=== PATIENT | male | born 1960 | race Caucasian/White ===

== ENCOUNTER 2018-11-20 05:08 | Day surgery (SDC) | payer MEDICARE ==
[~2018-11-20] VITALS: Ht 182.9 cm; Wt 130.6 kg
[2018-11-20] VITALS (10 sets, daily range): BP systolic 129–154; BP diastolic 58–88
[~2018-11-20 05:08] MED LIST: DOXY100C42 PO; GLIP10TA13 PO; HYDR-3062 PO; KETO-22 PO; LEVEMIR; OMEP-10 PO; OXYC-12 PO
--- OUTSIDE RECORDS SUMMARY | 2018-11-20 05:14 | XMS REPORT | Continuity of Care Document ---
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 Social History History Response Recorded Date/Time Alcohol Use Denies Use 01/29/13 7:51pm Recreational Drug Use N 01/29/13 7:51pm Allergies, Adverse Reactions, Alerts Allergen Type Severity Reaction Last Updated No Known Drug Allergies 01/29/13 Medications Medication Dose Units Route Sig Qty Days Oxycodone Hcl/Acetaminophen (Percocet 5-325 Mg Tablet) 1 Each PO Q4H PRN 14 Omeprazole (Prilosec 20 Mg) 20 Mg PO DAILY Glipizide 1 Each PO DAILY Immunizations Name Given Type DTaP 01/29/13 A Response Recorded Date/Time Status not known Unknown Results No Known Relevant Diagnostic Tests, Laboratory Data and/or Discharge Summary. Procedures Procedure Code Date DIAGNOSTIC COLONOSCOPY 51633 03/20/09 UPPER GI ENDOSCOPY BIOPSY 73994 03/20/09 Encounters Encounter Location Date/Time Departed Emergency Room [facility] 01/29/13 7:42pm
--- OUTSIDE RECORDS SUMMARY | 2018-11-20 05:15 | XMS REPORT | Continuity of Care Document ---
Author Organization Unknown Address Unknown Allergies There is no data. Medications There is no data. Problems There is no data. Procedures There is no data. Results There is no data. Encounters ACCT No. Visit Date/Time Discharge Status Pt. Type Provider Facility Loc./Unit Complaint [id number] 11/20/2013 06:24:00 11/20/2013 12:50:00 DIS Outpatient [id number] 11/16/2013 08:17:00 11/16/2013 23:59:59 CLS Outpatient [id number] 10/26/2013 10:22:00 10/26/2013 23:59:59 CLS Outpatient [id number] 01/29/2013 19:42:00 01/29/2013 22:26:00 DIS Emergency
[2018-11-20] MEDS ORDERED: NS IV 1000 ML 1,000 ML IV ONE (05:31)
[2018-11-20 05:32] LABS: BILIRUBIN,URINE NEGATIVE (NEGATIVE); CLARITY,URINE CLEAR; COLOR,URINE YELLOW; GLUCOSE, URINE (UA) 4+ (NEGATIVE); KETONES,URINE 3+ (NEGATIVE); LEUKOCYTE ESTERASE ,URINE 1+ (NEGATIVE); NITRITE,URINE NEGATIVE (NEGATIVE); PH,URINE 5 (5-9); PROTEIN,URINE 2+ (NEGATIVE); UROBILINOGEN,URINE NORMAL (NORMAL)
--- NOTE | 2018-11-20 05:38 | ED Abdominal Pain ---
General Chief Complaint: Abdominal/GI Problems Stated Complaint: LOWER ABD PAIN, HORSE VOICE, WEAK Nursing Triage Note: AMBULATORY TO ED WITH C/O OF ABD PAIN THAT STARTED TUESDAY, NOW RLQ. NAUSEATED ALL DAY YESTERDAY, NONE NOW AT THIS TIME. STATES HE HASN'T ATE VERY MUCH AND IS DIABETIC, LAST BLOOD SUGAR CHECK WAS 180s ABOUT 0400. Sepsis Screen: No Definite Risk Source of Information: Patient (KAREEM GIRARD DO) History of Present Illness Date Seen by Provider: November 20, 2018 Time Seen by Provider: 05:20 Initial Comments PT ARRIVES VIA POV FROM HOME STATES HE HAD DIARRHEA X 1 ON TUESDAY NIGHT YESTERDAY MORNING/TUESDAY MORNING HE BEGAN TO HAD EPIGASTRIC/ PERIUMBILICAL PAIN PAIN HAS MOVED TO RLQ PAIN IS CONSTANT, AND IS WORSE WITH WALKING, MOVEMENT/CHANGES IN POSITION. NO NAUSEA/VOMITING, BUT HAS NOT HAD AN APPETITE--ATE SCRAMBLED EGGS AND TOAST YESTERDAY AM, BUT HAS NOT HAD ANYTHING TO EAT SINCE. HAS BEEN SIPPING ON WATER IS STILL URINATING, BUT DECREASED AMOUNT. NO OTHER URINARY SYMPTOMS HAD TEMP OF 100 AT 0300 TODAY, AND HAS FELT VERY HOT, SHAKEY AND WEAK PT STATES HE IS DIABETIC AND BLOOD SUGAR WAS 160 AT 0300, AND 189 AT 0400 TOOK PEPTO BISMOL AT 0900 YESTERDAY WITHOUT RELIEF. NO HISTORY OF SIMILAR PT STATES HE HAS A HIATAL HERNIA AND AND ABDOMINAL HERNIA, BUT HAS NOT HAD SURGERY ON THEM. NO HISTORY OF ANY ABDOMINAL SURGERIES NO URINARY SYMPTOMS PCP : DR. BEAN (KAREEM GIRARD DO) Allergies and Home Medications Allergies Coded Allergies: No Known Drug Allergies (Unverified , 11/20/18) Home Medications Docusate Sodium 100 Mg Capsule, 100 MG PO BID Prescribed by: KRISTIN OLIVER on 11/21/18 1138 Glipizide 10 Mg Tablet, 10 MG PO 1700, (Reported) Hydrocodone Bit/Acetaminophen 1 Tab Tab, 1-2 TAB PO Q6H PRN for PAIN-MODERATE Prescribed by: KRISTIN OLIVER on 11/21/18 1138 Insulin Glargine,Hum.rec.anlog 300 Unit/1 Ml Insuln.pen, 30 UNITS SC BID, (Reported) Losartan Potassium 100 Mg Tablet, 100 MG PO HS, (Reported) Patient Home Medication List Home Medication List Reviewed: Yes (JESICA KAUFFMAN MD) Review of Systems Review of Systems Constitutional: see HPI, fever, malaise, weakness Respiratory: No Symptoms Reported Cardiovascular: No Symptoms Reported Gastrointestinal: See HPI, Abdominal Pain, Diarrhea; Denies Nausea; Poor Appetite, Poor Fluid Intake; Denies Vomiting Genitourinary: No Symptoms Reported Musculoskeletal: no symptoms reported Skin: no symptoms reported Psychiatric/Neurological: No Symptoms Reported Endocrine: No Symptoms Reported Hematologic/Lymphatic: No Symptoms Reported (KAREEM GIRARD DO) Past Jqdoteu-Cjqtuo-Bfcxcg Hx Patient Social History Alcohol Use: Denies Use Recreational Drug Use: No Smoking Status: Never a Smoker Recent Foreign Travel: No Contact w/Someone Who Travel: No Recent Infectious Disease Expo: No (KAREEM GIRARD DO) Immunizations Up To Date Tetanus Booster (TDap): More than 5yrs (KAREEM GIRARD DO) Seasonal Allergies Seasonal Allergies: No (KAREEM GIRARD DO) Past Medical History Surgeries: No Respiratory: No Cardiac: Yes High Cholesterol, Hypertension Neurological: No Reproductive Disorders: No Genitourinary: Yes Kidney Stones Gastrointestinal: Yes Abdominal Hernia, Hiatal Hernia Musculoskeletal: No Endocrine: Yes Diabetes, Non-Insulin dep HEENT: No Cancer: No Psychosocial: No Integumentary: No Blood Disorders: No (KAREEM GIRARD DO) Family Medical History No Pertinent Family Hx (KAREEM GIRARD DO) Physical Exam Vital Signs Vital Signs - First Documented 11/20/18 05:15 Temp 98.1 Pulse 100 Resp 18 B/P (MAP) 153/97 (115) (JESICA KAUFFMAN MD) Vital Signs Capillary Refill : Less Than 3 Seconds (KAREEM GIRARD DO) Height/Weight/BMI Height: 6'0" Weight: 280lbs. oz. 127.968111vx; 37.10 BMI Method:Stated General Appearance: no apparent distress, other (WALKS SLOWLY, SLIGHTLY BENT AT WAIST, AND CHANGES POSITIONS SLOWLY. VOICE IS SOMEWHAT WEAK) Neck: normal inspection Respiratory: normal breath sounds, no respiratory distress, no accessory muscle use Cardiovascular: regular rate, rhythm, no murmur Gastrointestinal: soft; No distended, No guarding, No rebound; tenderness (MILD EPIGASTRIC TENDERNESS, MODERATE RLQ TENDERNESS. NEGATIVE HEEL TAP, NEGATIVE ROV SING'S ) Extremities: normal inspection, no pedal edema, normal capillary refill Back: no CVA tenderness Neurologic/Psychiatric: blending kettle tender II-XII nml as tested, no motor/sensory deficits, alert, oriented x 3 Skin: normal color (SHAJI,KAREEM K DO) Progress/Results/Core Measures Results/Orders Lab Results Laboratory Tests Test 11/20/18 05:25 11/20/18 05:35 11/20/18 05:40 Range/Units Urine Color YELLOW Urine Clarity CLEAR Urine pH 5 5-9 Urine Specific [place] 1.025 H 1.016-1.022 Urine Protein 2+ H NEGATIVE Urine Glucose (UA) 4+ H NEGATIVE Urine Ketones 3+ H NEGATIVE Urine Nitrite NEGATIVE NEGATIVE Urine Bilirubin NEGATIVE NEGATIVE Urine Urobilinogen NORMAL NORMAL MG/DL Urine Leukocyte Esterase 1+ H NEGATIVE Urine RBC (Auto) NEGATIVE NEGATIVE Urine RBC NONE /HPF Urine WBC 0-2 /HPF Urine Squamous Epithelial Cells 2-5 /HPF Urine Crystals NONE /LPF Urine Bacteria FEW H /HPF Urine Casts NONE /LPF Urine Mucus LARGE H /LPF Urine Culture Indicated NO White Blood Count 17.2 H 4.3-11.0 10^3/uL Red Blood Count 4.83 4.35-5.85 10^6/uL Hemoglobin 14.1 13.3-17.7 G/DL Hematocrit 41 40-54 % Mean Corpuscular Volume 86 80-99 FL Mean Corpuscular Hemoglobin 29 25-34 PG Mean Corpuscular Hemoglobin Concent 34 32-36 G/DL Red Cell Distribution Width 13.9 10.0-14.5 % Platelet Count 267 130-400 10^3/uL Mean Platelet Volume 11.2 H 7.4-10.4 FL Neutrophils (%) (Auto) 86 H 42-75 % Lymphocytes (%) (Auto) 7 L 12-44 % Monocytes (%) (Auto) 7 0-12 % Eosinophils (%) (Auto) 0 0-10 % Basophils (%) (Auto) 0 0-10 % Neutrophils # (Auto) 14.9 H 1.8-7.8 X 10^3 Lymphocytes # (Auto) 1.2 1.0-4.0 X 10^3 Monocytes # (Auto) 1.1 H 0.0-1.0 X 10^3 Eosinophils # (Auto) 0.0 0.0-0.3 10^3/uL Basophils # (Auto) 0.0 0.0-0.1 10^3/uL Neutrophils % (Manual) 82 % Lymphocytes % (Manual) 11 % Monocytes % (Manual) 2 % Eosinophils % (Manual) 0 % Basophils % (Manual) 0 % Band Neutrophils 5 % Blood Morphology Comment NORMAL Sodium Level 136 135-145 MMOL/L Potassium Level 4.5 3.6-5.0 MMOL/L Chloride Level 100 98-107 MMOL/L Carbon Dioxide Level 23 21-32 MMOL/L Anion Gap 13 5-14 MMOL/L Blood Urea Nitrogen 16 7-18 MG/DL Creatinine 1.05 0.60-1.30 MG/DL Estimat Glomerular Filtration Rate > 60 BUN/Creatinine Ratio 15 Glucose Level 273 H 70-105 MG/DL Calcium Level 9.9 8.5-10.1 MG/DL Corrected Calcium 9.5 8.5-10.1 MG/DL Total Bilirubin 0.9 0.1-1.0 MG/DL Aspartate Amino Transf (AST/SGOT) 15 5-34 U/L Alanine Aminotransferase (ALT/SGPT) 20 0-55 U/L Alkaline Phosphatase 83 40-136 U/L Total Protein 7.7 6.4-8.2 GM/DL Albumin 4.5 3.2-4.5 GM/DL Amylase Level 43 25-125 U/L Lipase 126 H 8-78 U/L Glucometer 252 H 70-110 MG/DL (JESICA KAUFFMAN MD) My Orders Orders - JESICA KAUFFMAN MD Ct Abd/Pelv W (Appendicitis) (11/20/18 06:17) Iohexol Injection (Omnipaque 350 Mg/Ml 1 (11/20/18 07:00) Received Contrast (Hold Metformin- Contr (11/20/18 07:00) Ns (Ivpb) (Sodium Chloride 0.9%) (11/20/18 07:00) Fentanyl Injection (Sublimaze Injection (11/20/18 07:23) Lactated Ringers (Lr 1000 Ml Iv Solution (11/20/18 07:23) (JESICA KAUFFMAN MD) Medications Given in ED (JESICA KAUFFMAN MD) Vital Signs/I&O 11/20/18 05:15 Temp 98.1 Pulse 100 Resp 18 B/P (MAP) 153/97 (115) (JESICA KAUFFMAN MD) Blood Pressure Mean: 115 Progress Progress Note : Progress Note 0600--CARE TURNED OVER TO DR. KAUFFMAN, LAB PENDING. (KAREEM GIRARD DO) Progress Note : Progress Note 0620: I have assumed care of the patient. I have reexamined the patient and found that he has tenderness to the right lower quadrant. He does report the pain has worsened overnight and is worse with movement. He declines pain or nausea medicine currently. I have reviewed the labs and patient's creatinine is okay. He has had approximately 500 mL of fluid thus far. We will go ahead and order a CT abdomen and pelvis appendicitis protocol. Patient informed and nothing by mouth status. Monitor patient. 0724: CT complete and does show acute appendicitis which has been verified by radiologist. I did discuss the case with Dr. Oliver and he will see the patient in the emergency department with anticipation of going to the OR. Fentanyl 50 g IV and LR started at 125 mL an hour. Patient informed and agrees. (JESICA KAUFFMAN MD) Diagnostic Imaging Diagonstic Imaging: CT Plain Films/CT/US/NM/MRI: abdomen, pelvis Comments NAME: [facility] REC#: [id number] PT STATUS: REG ER : 1960 PHYSICIAN: JESICA KAUFFMAN MD ADMIT DATE: 11/20/18/ER Draft Date of Exam:11/20/18 CT ABD/PELV W (APPENDICITIS) PROCEDURE: CT abdomen and pelvis with contrast, rule out appendicitis. TECHNIQUE: Multiple contiguous axial images were obtained through the abdomen and pelvis after the administration of intravenous contrast. INDICATION: Right lower quadrant pain. History of kidney stones. FINDINGS: The lung bases demonstrate no focal pulmonary infiltrate or consolidation. There is no effusion. There is no pericardial effusion. The liver demonstrates no focal intrahepatic abnormality. The portal veins are patent. There are small gallstones within the gallbladder without biliary dilatation or gallbladder distention. The pancreas demonstrates no focal abnormality. The spleen is normal in size. There is no adrenal mass. The kidneys enhance normally and appear nonobstructed. Small and large bowel are normal in caliber without evidence of obstruction. There is abnormal inflammation demonstrated within the right lower quadrant. The proximal aspect of the appendix is abnormally enlarged and has appendicolith at its base compatible with acute appendicitis. There is no bowel junction. There is no free air, free fluid or abscess. There is no free fluid within the pelvis. Urinary bladder nondistended. There is minimal atherosclerosis demonstrated within the iliac vessels. Abdominal aorta normal in caliber. There are mild lumbar degenerative endplate changes and facet arthropathy but no acute or suspicious osseous abnormality. IMPRESSION: 1. There are appendicoliths at the base of the appendix with proximal aspect of the appendix being abnormally dilated and fluid-filled with adjacent inflammation within the mesentery. The features are compatible with an acute appendicitis. There is no free fluid, evidence of abscess or free air. There is no bowel obstruction. 2. Cholelithiasis without gallbladder distention or biliary dilatation. Findings called to Dr. Kauffman at 7:20 AM. Dictated on workstation # [id number] Dict: 11/20/18 0714 Trans: 11/20/18 0732 [id number] Interpreted by: IRON LIZ MD Electronically signed by: Reviewed: Reviewed by Me, Discussed w/Radiologist (JESICA KAUFFMAN MD) Departure Communication (Admissions) Time/Spoke to Admitting Phy: 07:24 (JESICA KAUFFMAN MD) Impression Primary Impression: Appendicitis Qualified Codes: K35.30 - Acute appendicitis with localized peritonitis, without perforation or gangrene Disposition: ADMITTED INPATIENT Condition: Stable Admissions Decision to Admit Reason: Admit from ER (General) Decision to Admit/Date: November 20, 2018 Time/Decision to Admit Time: 07:24 (JESICA KAUFFMAN MD) Departure-Patient Inst. Referrals: GABRIELA BEAN MD (PCP/Family) Primary Care Physician Scripts Docusate Sodium (Colace) 100 Mg Capsule 100 MG PO BID, #30 CAP Prov: KRISTIN OLIVER DO 11/21/18 Hydrocodone Bit/Acetaminophen (Hydrocodone/Acetaminophen 5/325mg Tablet) 1 Tab Tab 1-2 TAB PO Q6H PRN for PAIN-MODERATE MDD 10, #30 TAB 0 Refills Prov: KRISTIN OLIVER DO 11/21/18 KAREEM GIRARD DO November 20, 2018 05:38 JESICA KAUFFMAN MD November 20, 2018 06:23
[2018-11-20 05:40] LABS: BACTERIA,URINE FEW /HPF; WBC,URINE 0-2 /HPF
[2018-11-20 05:49] LABS: BASOPHILS % (AUTO) 0 % (0-10); EOSINOPHILS % (AUTO) 0 % (0-10); HEMATOCRIT 41 % (40-54); HEMOGLOBIN 14.1 G/DL (13.3-17.7); LYMPHOCYTES # (AUTO) 1.2 X 10^3 (1.0-4.0); LYMPHOCYTES % (AUTO) 7 % (12-44); MEAN CORPUSCULAR HEMOGLOBIN 29 PG (25-34); MEAN CORPUSCULAR HGB CONC 34 G/DL (32-36); MEAN CORPUSCULAR VOLUME 86 FL (80-99); MEAN PLATELET VOLUME 11.2 FL (7.4-10.4); MONOCYTES # (AUTO) 1.1 X 10^3 (0.0-1.0); MONOCYTES % (AUTO) 7 % (0-12); NEUTROPHILS # (AUTO) 14.9 X 10^3 (1.8-7.8); NEUTROPHILS % (AUTO) 86 % (42-75); PLATELET COUNT 267 10^3/uL (130-400); RED CELL DISTRIBUTION WIDTH 13.9 % (10.0-14.5); WHITE BLOOD COUNT 17.2 10^3/uL (4.3-11.0)
[2018-11-20 06:15] LABS: ALANINE AMINOTRANSFERASE 20 U/L (0-55); ALBUMIN 4.5 GM/DL (3.2-4.5); ALKALINE PHOSPHATASE 83 U/L (40-136); AMYLASE 43 U/L (25-125); BILIRUBIN,TOTAL 0.9 MG/DL (0.1-1.0); BUN/CREATININE RATIO 15; CALCIUM 9.9 MG/DL (8.5-10.1); CARBON DIOXIDE 23 MMOL/L (21-32); CHLORIDE 100 MMOL/L (98-107); CREATININE SERUM 1.05 MG/DL (0.60-1.30); GFR ESTIMATED > 60; GLUCOSE 273 MG/DL (70-105); LIPASE 126 U/L (8-78); POTASSIUM 4.5 MMOL/L (3.6-5.0); SODIUM 136 MMOL/L (135-145); TOTAL PROTEIN 7.7 GM/DL (6.4-8.2)
[2018-11-20] MEDS ORDERED: NS 250 ML (IVPB) BAG IV ONE (07:00)
[2018-11-20] MEDS ORDERED: IOHEXOL 350 MG/ML 100 ML (OMNIPAQUE 350) VIAL IV ONE (07:00)
[2018-11-20] MEDS ORDERED: HOLD METFORMIN - RECEIVED CONTRAST 20 ML VIAL IV SCH (07:00)
[2018-11-20 07:12] LABS: BAND NEUTROPHILS 5 %; BASOPHILS % (MANUAL) 0 %; EOSINOPHILS % (MANUAL) 0 %; LYMPHOCYTES % (MANUAL) 11 %; MONOCYTES % (MANUAL) 2 %; NEUTROPHILS % (MANUAL) 82 %; RBC MORPH NORMAL
[2018-11-20] MEDS ORDERED: LACTATED RINGERS 1,000 ML IV ONE (07:23)
[2018-11-20] MEDS ORDERED: fentaNYL INJECTION 100 MCG/2 ML AMP IVP STA (07:23)
--- NOTE | 2018-11-20 07:33 | Diagnostic Imaging Report ---
PROCEDURE: CT abdomen and pelvis with contrast, rule out appendicitis. TECHNIQUE: Multiple contiguous axial images were obtained through the abdomen and pelvis after the administration of intravenous contrast. INDICATION: Right lower quadrant pain. History of kidney stones. FINDINGS: The lung bases demonstrate no focal pulmonary infiltrate or consolidation. There is no effusion. There is no pericardial effusion. The liver demonstrates no focal intrahepatic abnormality. The portal veins are patent. There are small gallstones within the gallbladder without biliary dilatation or gallbladder distention. The pancreas demonstrates no focal abnormality. The spleen is normal in size. There is no adrenal mass. The kidneys enhance normally and appear nonobstructed. Small and large bowel are normal in caliber without evidence of obstruction. There is abnormal inflammation demonstrated within the right lower quadrant. The proximal aspect of the appendix is abnormally enlarged and has appendicolith at its base compatible with acute appendicitis. There is no bowel junction. There is no free air, free fluid or abscess. There is no free fluid within the pelvis. Urinary bladder nondistended. There is minimal atherosclerosis demonstrated within the iliac vessels. Abdominal aorta normal in caliber. There are mild lumbar degenerative endplate changes and facet arthropathy but no acute or suspicious osseous abnormality. IMPRESSION: 1. There are appendicoliths at the base of the appendix with proximal aspect of the appendix being abnormally dilated and fluid-filled with adjacent inflammation within the mesentery. The features are compatible with an acute appendicitis. There is no free fluid, evidence of abscess or free air. There is no bowel obstruction. 2. Cholelithiasis without gallbladder distention or biliary dilatation. Findings called to Dr. Duque at 7:20 AM. Dictated by: Dictated on workstation # [id number]
--- OUTSIDE RECORDS SUMMARY | 2018-11-20 08:14 | XMS REPORT | Continuity of Care Document ---
Author Organization Unknown Address Unknown Allergies There is no data. Medications There is no data. Problems There is no data. Procedures There is no data. Results Test Result Range Complete urinalysis with reflex to culture - 11/20/18 05:25 Urine color determination YELLOW NRG Urine clarity determination CLEAR NRG Urine pH measurement by test strip 5 5-9 Specific gravity of urine by test strip 1.025 1.016-1.022 Urine protein assay by test strip, semi-quantitative 2+ NEGATIVE Urine glucose detection by automated test strip 4+ NEGATIVE Erythrocytes detection in urine sediment by light microscopy NEGATIVE NEGATIVE Urine ketones detection by automated test strip 3+ NEGATIVE Urine nitrite detection by test strip NEGATIVE NEGATIVE Urine total bilirubin detection by test strip NEGATIVE NEGATIVE Urine urobilinogen measurement by automated test strip (mass/volume) NORMAL NORMAL Urine leukocyte esterase detection by dipstick 1+ NEGATIVE Automated urine sediment erythrocyte count by microscopy (number/high power field) NONE NRG Automated urine sediment leukocyte count by microscopy (number/high power field) [HPF] NRG Bacteria detection in urine sediment by light microscopy FEW NRG Squamous epithelial cells detection in urine sediment by light microscopy 2-5 NRG Crystals detection in urine sediment by light microscopy NONE NRG Casts detection in urine sediment by light microscopy NONE NRG Mucus detection in urine sediment by light microscopy LARGE NRG Complete urinalysis with reflex to culture NO NRG Complete blood count (CBC) with automated white blood cell (WBC) differential - 11/20/18 05:35 Blood leukocytes automated count (number/volume) 17.2 10*3/uL 4.3-11.0 Blood erythrocytes automated count (number/volume) 4.83 10*6/uL 4.35-5.85 Venous blood hemoglobin measurement (mass/volume) 14.1 g/dL 13.3-17.7 Blood hematocrit (volume fraction) 41 % 40-54 Automated erythrocyte mean corpuscular volume 86 [foz_us] 80-99 Automated erythrocyte mean corpuscular hemoglobin (mass per erythrocyte) 29 pg 25-34 Automated erythrocyte mean corpuscular hemoglobin concentration measurement (mass/volume) 34 g/dL 32-36 Automated erythrocyte distribution width ratio 13.9 % 10.0- 14.5 Automated blood platelet count (count/volume) 267 10*3/uL 130-400 Automated blood platelet mean volume measurement 11.2 [foz_us] 7.4-10.4 Automated blood neutrophils/100 leukocytes 86 % 42-75 Automated blood lymphocytes/100 leukocytes 7 % 12-44 Blood monocytes/100 leukocytes 7 % 0-12 Automated blood eosinophils/100 leukocytes 0 % 0-10 Automated blood basophils/100 leukocytes 0 % 0-10 Blood neutrophils automated count (number/volume) 14.9 10*3 1.8-7.8 Blood lymphocytes automated count (number/volume) 1.2 10*3 1.0-4.0 Blood monocytes automated count (number/volume) 1.1 10*3 0.0- 1.0 Automated eosinophil count 0.0 10*3/uL 0.0-0.3 Automated blood basophil count (count/volume) 0.0 10*3/uL 0.0-0.1 Comprehensive metabolic panel - 11/20/18 05:35 Serum or plasma sodium measurement (moles/volume) 136 mmol/L 135-145 Serum or plasma potassium measurement (moles/volume) 4.5 mmol/L 3.6-5.0 Serum or plasma chloride measurement (moles/volume) 100 mmol/L 98-107 Carbon dioxide 23 mmol/L 21-32 Serum or plasma anion gap determination (moles/volume) 13 mmol/L 5-14 Serum or plasma urea nitrogen measurement (mass/volume) 16 mg/dL 7-18 Serum or plasma creatinine measurement (mass/volume) 1.05 mg/dL 0.60-1.30 Serum or plasma urea nitrogen/creatinine mass ratio 15 NRG Serum or plasma creatinine measurement with calculation of estimated glomerular filtration rate > NRG Serum or plasma glucose measurement (mass/volume) 273 mg/dL 70-105 Serum or plasma calcium measurement (mass/volume) 9.9 mg/dL 8.5-10.1 Serum or plasma total bilirubin measurement (mass/volume) 0.9 mg/dL 0.1-1.0 Serum or plasma alkaline phosphatase measurement (enzymatic activity/volume) 83 U/L 40-136 Serum or plasma aspartate aminotransferase measurement (enzymatic activity/volume) 15 U/L 5-34 Serum or plasma alanine aminotransferase measurement (enzymatic activity/volume) 20 U/L 0-55 Serum or plasma protein measurement (mass/volume) 7.7 g/dL 6.4-8.2 Serum or plasma albumin measurement (mass/volume) 4.5 g/dL 3.2-4.5 CALCIUM CORRECTED 9.5 mg/dL 8.5-10.1 Serum or plasma amylase measurement (enzymatic activity/volume) - 11/20/18 05:35 Serum or plasma amylase measurement (enzymatic activity/volume) 43 U/L 25-125 Lipase - 11/20/18 05:35 Lipase 126 U/L 8-78 Blood manual differential performed detection - 11/20/18 05:35 Blood monocytes/100 leukocytes 2 % NRG Manual blood segmented neutrophils/100 leukocytes 82 % NRG Blood band neutrophils/100 leukocytes 5 % NRG Manual blood lymphocytes/100 leukocytes 11 % NRG Manual eosinophils/100 leukocytes in nose 0 % NRG Manual blood basophils/100 leukocytes 0 % NRG Blood erythrocyte morphology finding identification NORMAL NRG Capillary blood glucose measurement by glucometer (mass/volume) - 11/20/18 05:40 Capillary blood glucose measurement by glucometer (mass/volume) 252 mg/dL 70-110 Encounters ACCT No. Visit Date/Time Discharge Status Pt. Type Provider Facility Loc./Unit Complaint [id number] 11/20/2013 06:24:00 11/20/2013 12:50:00 DIS Outpatient [id number] 11/16/2013 08:17:00 11/16/2013 23:59:59 CLS Outpatient [id number] 10/26/2013 10:22:00 10/26/2013 23:59:59 CLS Outpatient [id number] 01/29/2013 19:42:00 01/29/2013 22:26:00 DIS Emergency [id number] 11/20/2018 05:40:00 Document Registration
[2018-11-20] MEDS ORDERED: BUP/EPI 0.5% 1:200,000 (SENSORCAINE) 30 ML VIAL ONE (08:41)
[2018-11-20] MEDS ORDERED: LIDOCAINE 1% INJ 20 ML 20 ML VIAL ONE (08:41)
[2018-11-20] MEDS ORDERED: LIDOCAINE PF 2% 5 ML (XYLOCAINE) VIAL ONE (08:52)
[2018-11-20] MEDS ORDERED: ROCURONIUM 10 MG/ML 5 ML SYRINGE IV ONE (08:52)
[2018-11-20] MEDS ORDERED: proPOfol 200 MG/20 ML (DIPRIVAN) VIAL IV ONE (08:52)
[2018-11-20] MEDS ORDERED: fentaNYL INJECTION 100 MCG/2 ML AMP ONE (08:53)
[2018-11-20] MEDS ORDERED: MIDAZOLAM 2 MG/2 ML (VERSED) VIAL ONE (08:54)
[2018-11-20] MEDS ORDERED: metroNIDAZOLE 500MG/100ML IVPB IV ONE (09:00)
[2018-11-20] MEDS ORDERED: ceFAZolin 2 GM IV Premixed 50 ML IV ONE (09:00)
--- NOTE | 2018-11-20 09:04 | History & Physical-Surgical ---
History of Present Illness History of Present Illness Reason for visit/HPI CC: rlq abdominal pain. seen and evaluated in ED patient is a 58 year old male who began feeling aching abdominal pain around umbilicus yesterday. this porgressed an migrated to the right lower quadrant. unable to get much sleep due to the pain and came to er for further evaluation. He states movement makes pain worse. Pain medication has helped some. Rates pain at at 6/10 at worse. Has some slight diarrhea 2 days ago. Denies any n/v fever sweats chills shortness of breath or chest pain. CT scan reviewed and demonstrated appendicolith and dilation of proximal appendix with inflammation around it consistent with appendicitis. Date of Admission T Date Seen by a Provider: November 20, 2018 Time Seen by a Provider: 08:59 I consulted on this patient on 11/20/18 08:58 Attending Physician Kristin Finney DO Admitting Physician Cale Simpson MD Consult Allergies and Home Medications Allergies Coded Allergies: No Known Drug Allergies (Unverified , 01/29/13) Home Medications Doxycycline Monohydrate 100 Mg Capsule, 100 MG PO DAILY, (Reported) Glipizide 10 Mg Tablet, 1 EACH PO DAILY, (Reported) Hydrocodone Bit/Acetaminophen 1 Each Tablet, 1 EACH PO Q4H PRN for PAIN, (Reported) Ketorolac Tromethamine 10 Mg Tablet, 10 MG PO Q6H PRN for PAIN, (Reported) Omeprazole 20 Mg Capsule.dr, 20 MG PO DAILY, (Reported) Patient Home Medication List Home Medication List Reviewed: Yes Past Ttnhroz-Ttoeyw-Hcfsrp Hx Patient Social History Alcohol Use: Denies Use Recreational Drug Use: No Smoking Status: Never a Smoker Recent Foreign Travel: No Contact w/Someone Who Travel: No Recent Infectious Disease Expo: No Recent Hopitalizations: No Immunizations Up To Date Tetanus Booster (TDap): More than 5yrs Seasonal Allergies Seasonal Allergies: No Surgeries History of Surgeries: No Respiratory History of Respiratory Disorde: No Cardiovascular History of Cardiac Disorders: Yes Cardiac Disorders: High Cholesterol, Hypertension Neurological History of Neurological Disord: No Reproductive System Hx Reproductive Disorders: No Genitourinary History of Genitourinary Disor: Yes Genitourinary Disorders: Kidney Stones Gastrointestinal History of Gastrointestinal Di: Yes Gastrointestinal Disorders: Abdominal Hernia, Hiatal Hernia Musculoskeletal History of Musculoskeletal Dis: No Endocrine History of Endocrine Disorders: Yes Endocrine Disorders: Diabetes, Non-Insulin dep HEENT History of HEENT Disorders: No Cancer History of Cancer: No Psychosocial History of Psychiatric Problem: No Integumentary History of Skin or Integumenta: No Blood Transfusions History of Blood Disorders: No Family Medical History Significant Family History: No Pertinent Family Hx Review of Systems Constitutional: no symptoms reported EENTM: no symptoms reported Respiratory: no symptoms reported Cardiovascular: no symptoms reported Gastrointestinal: see HPI Genitourinary: no symptoms reported Musculoskeletal: no symptoms reported Skin: no symptoms reported Psychiatric/Neurological: No Symptoms Reported Physical Exam Vital Signs Vital Signs - First Documented 11/20/18 05:15 Temp 98.1 Pulse 100 Resp 18 B/P (MAP) 153/97 (115) Capillary Refill : Less Than 3 Seconds Height, Weight, BMI Height: 6'0" Weight: 280lbs. oz. 127.526290co; 37.10 BMI Method:Stated General Appearance: No Apparent Distress, WD/WN, Obese HEENT: PERRL/EOMI, Normal ENT Inspection Neck: Non Tender, Supple Respiratory: Chest Non Tender, No Accessory Muscle Use, No Respiratory Distress Cardiovascular: Regular Rate, Rhythm Gastrointestinal: Soft, Tenderness (rlq) Rectal: Deferred Back: Normal Inspection, No CVA Tenderness Extremity: Normal Capillary Refill, Normal Inspection Neurologic/Psychiatric: Alert, Oriented x3 Skin: Normal Color, Warm/Dry Lymphatic: No Adenopathy Data Review Labs Laboratory Tests 11/20/18 05:25: Urine Color YELLOW, Urine Clarity CLEAR, Urine pH 5, Urine Specific [place] 1.025H, Urine Protein 2+H, Urine Glucose (UA) 4+H, Urine Ketones 3+H, Urine Nitrite NEGATIVE, Urine Bilirubin NEGATIVE, Urine Urobilinogen NORMAL, Urine Leukocyte Esterase 1+H, Urine RBC (Auto) NEGATIVE, Urine RBC NONE, Urine WBC 0- 2, Urine Squamous Epithelial Cells 2-5, Urine Crystals NONE, Urine Bacteria FEWH , Urine Casts NONE, Urine Mucus LARGEH, Urine Culture Indicated NO 11/20/18 05:35: White Blood Count 17.2H, Red Blood Count 4.83, Hemoglobin 14.1, Hematocrit 41, Mean Corpuscular Volume 86, Mean Corpuscular Hemoglobin 29, Mean Corpuscular Hemoglobin Concent 34, Red Cell Distribution Width 13.9, Platelet Count 267, Mean Platelet Volume 11.2H, Neutrophils (%) (Auto) 86H, Lymphocytes (%) (Auto) 7L, Monocytes (%) (Auto) 7, Eosinophils (%) (Auto) 0, Basophils (%) (Auto) 0, Neutrophils # (Auto) 14.9H, Lymphocytes # (Auto) 1.2, Monocytes # (Auto) 1.1H, Eosinophils # (Auto) 0.0, Basophils # (Auto) 0.0, Neutrophils % (Manual) 82, Lymphocytes % (Manual) 11, Monocytes % (Manual) 2, Eosinophils % (Manual) 0, Basophils % (Manual) 0, Band Neutrophils 5, Blood Morphology Comment NORMAL, Sodium Level 136, Potassium Level 4.5, Chloride Level 100, Carbon Dioxide Level 23, Anion Gap 13, Blood Urea Nitrogen 16, Creatinine 1.05, Estimat Glomerular Filtration Rate > 60, BUN/Creatinine Ratio 15, Glucose Level 273H, Calcium Level 9.9, Corrected Calcium 9.5, Total Bilirubin 0.9, Aspartate Amino Transf (AST/SG OT) 15, Alanine Aminotransferase (ALT/SGPT) 20, Alkaline Phosphatase 83, Total Protein 7.7, Albumin 4.5, Amylase Level 43, Lipase 126H 11/20/18 05:40: Glucometer 252H Assessment/Plan Assessment/Plan Admission Diagonsis rlq abdominal pain appendicitis dm Admission Status: Observation Assessment/Plan rlq abdominal pain appendicitis dm discussed risks and benefits of laparoscopic appendectomy all other indicated procedures and he understands and wishes to proceed. consent ancef/flagyl pain control npo to or KRISTIN FINNEY DO November 20, 2018 09:04
[2018-11-20] MEDS ORDERED: ceFAZolin INJECTION 2,000 MG ONE (09:07)
[2018-11-20] MEDS ORDERED: metroNIDAZOLE 500MG/100ML IVPB 100 ML ONE (09:08)
[2018-11-20] MEDS ORDERED: SEVOFLURANE (ULTANE) 15 ML INHAL SOLN ONE ×3 (09:15→10:30)
[2018-11-20] MEDS ORDERED: ONDANSETRON 4 MG/2 ML (SDV) Z0FRAN ONE ×2 (09:15→09:21)
[2018-11-20] MEDS ORDERED: HYDROmorphone 2 MG/ML VIAL (DILAUDID) ONE (09:20)
[2018-11-20] MEDS ORDERED: morphine INJ 10 MG/ML 1ML (SYR OR VIAL) ONE (09:20)
[2018-11-20] MEDS ORDERED: NEOSTIGMINE 1 MG/ML 5 ML SYRINGE ONE (10:25)
[2018-11-20] MEDS ORDERED: GLYCOPYRROLATE 0.2 MG/ML (ROBINUL) 2 ML VIAL ONE (10:25)
[2018-11-20] MEDS ORDERED: HYDROcodone/APAP 5 MG/325 MG (LORTAB) TAB PO PRN (10:30)
[2018-11-20] MEDS ORDERED: morphine INJ 10 MG/ML 1ML (SYR OR VIAL) IV PRN (10:30)
--- NOTE | 2018-11-20 10:39 | Progress Note-Post Operative ---
Post-Operative Progess Note Surgeon (s)/[place] (s) Surgeon KRISTIN OLIVER DO [place]: na Pre-Operative Diagnosis appendicitis Post-Operative Diagnosis same Procedure & Operative Findings Date of Procedure 11/20/18 Procedure Performed/Findings lap appy Anesthesia Type gen Estimated Blood Loss Estimated blood loss (mL): min Specimens/Packing Specimens Removed appendix KRISTIN OLIVER DO November 20, 2018 10:39
[2018-11-20] MEDS: LACTATED RINGERS 1,000 ML IV SCH ×3 (10:44→17:10)
--- NOTE | 2018-11-20 10:53 | OPERATIVE REPORT ---
DATE OF SERVICE: 11/20/2018 PREOPERATIVE DIAGNOSIS: Appendicitis. POSTOPERATIVE DIAGNOSIS: Appendicitis. PROCEDURE: Laparoscopic appendectomy. SURGEON: Kristin Finney DO. ANESTHESIA: General. ESTIMATED BLOOD LOSS: Minimal. COMPLICATIONS: None. INDICATIONS: The patient is a 58-year-old male who started having abdominal pain yesterday. It started on the umbilicus and migrated to the right lower quadrant. CT scan consistent with appendicitis and physical exam consistent with appendicitis. The patient was discussed risks and benefits of procedure and wished to proceed with procedure. Consent was signed in the chart. PROCEDURE: The patient was taken to the operating suite, was prepped and draped in sterile fashion. Timeout was performed. A 5 mm incision was made at the umbilicus. Kochers were used to dissect down to the fascia, which was then grasped, elevated and Veress needle inserted and pneumoperitoneum was achieved. Under direct visualization of the laparoscope, a 5 mm trocar was placed in the suprapubic region and a 12 mm trocar was placed in left lower quadrant. Appendix was extremely adherent, and inflamed and dilated. This was grasped, dissected free. A LigaSure was used to go across the mesoappendix. The Endo-JAVY 2.5 stapler was then fired across the base of the appendix. The abdomen was then irrigated and suctioned. The appendix was placed in an Endobag and removed through the 12 mm trocar site. The 12 mm fascial defect was then closed using 0 Vicryl with an Endoclose. The abdomen was then desufflated. Trocars were removed. The skin was then closed using 4-0 Vicryl in a subcuticular fashion. The areas were then washed and dried, and Skin Affix was placed over the incisions. The patient tolerated procedure well without any complications and taken to recovery room in stable condition. Job ID: [id number] DocumentID: [id number] Dictated Date: 11/20/2018 10:38:53 Loans Consultant Date: 11/20/2018 10:52:43 Dictated By: KRISTIN FINNEY DO
[2018-11-20] MEDS ORDERED: ONDANSETRON 4 MG/2 ML (SDV) Z0FRAN IVP PRN (11:00)
[2018-11-20] MEDS ORDERED: PROMETHAZINE INJ 25 MG/ML (PHENERGAN) AMP IVP ONE (11:00)
[2018-11-20] MEDS ORDERED: HYDROmorphone 2 MG/ML VIAL (DILAUDID) IV ONE (11:00)
[2018-11-20] MEDS ORDERED: MEPERIDINE (DEMEROL) INJ 50 MG/ML IVP ONE (11:00)
[2018-11-20] MEDS ORDERED: morphine INJ 10 MG/ML 1ML (SYR OR VIAL) IVP ONE (11:00)
--- NOTE | 2018-11-20 11:45 | NUR ---
patient to floor at this time via cart
[2018-11-20] MEDS: metroNIDAZOLE 500MG/100ML IVPB IV SCH ×2 (13:48→21:48)
[2018-11-20] MEDS: CEFAZOLIN 2 GM/50 ML IV SCH ×2 (13:49→22:59)
[2018-11-20] MEDS: SODIUM CHLORIDE IV SCH ×2 (13:49→22:59)
[2018-11-20] MEDS: NS IV 1000 ML 1,000 ML IV SCH ×2 (13:49→17:44)
[2018-11-20] MEDS ORDERED: ceFAZolin INJECTION 2,000 MG in WATER (STERILE) FOR INJECTION 10 ML IV SCH (14:00)
[2018-11-21] MEDS: NS IV 1000 ML 1,000 ML IV SCH ×2 (03:22→11:17)
[2018-11-21 04:21] VITALS: BP 141/64
[2018-11-21 07:44] VITALS: BP 145/63
--- NOTE | 2018-11-21 08:26 | Anesthesia-General Post-Op ---
General Patient Condition Mental Status/LOC: Same as Preop Cardiovascular: Satisfactory Nausea/Vomiting: Absent Respiratory: Satisfactory Pain: Controlled Complications: Absent Post Op Complications Complications None Follow Up Care/Instructions Patient Instructions None needed. Anesthesia/Patient Condition Patient Condition Patient is doing well, no complaints, stable vital signs, no apparent adverse anesthesia problems. No complications reported per nursing. D/C [place] [facility] [place]: Yes SORAYA LUCIANO CRNA November 21, 2018 08:26
[2018-11-21] MEDS ORDERED: LOSA100T57 PO (09:02)
[2018-11-21] MEDS ORDERED: GLIP10TA13 PO (09:02)
[2018-11-21] MEDS ORDERED: INSU300I SC (09:02)
[2018-11-21] MEDS ORDERED: ACET-2267 PO (09:03)
--- NOTE | 2018-11-21 09:03 | NUR ---
WENT OVER THE EXT MED HX WITH THE PATIENT AND HE VERIFIED HOW HE TAKES EACH MEDICATION. HE ALSO STATES HE TAKES TYLENOL OTC NEEDED.
[2018-11-21 11:34] VITALS: BP 161/72
[2018-11-21] MEDS ORDERED: ACHD5005 PO (11:38)
[2018-11-21] MEDS ORDERED: DOCU-143 PO (11:38)
--- NOTE | 2018-11-21 11:39 | Discharge Inst-Simple/Standard ---
Discharge Inst-Standard Discharge Medications New, Converted or Re-Newed RX: RX on Chart Patient Instructions/Follow Up Plan of Care/Instructions/FU: 2 weeks Finney Activity as Tolerated: No Discharge Diet: Regular Diet Other Inst to Patient Follow up Appt: Make appointment for 2 week. Instructions: No lifting greater than 10 pounds. No strenuous activity. May shower in 24 hours, no tub bath or soaking. Use incentive spirometer at home as directed. No Smoking Skin/Wound Care: You have special glue over incisions it will fall off on its own. Symptoms to Report: Appetite Changes, Extremity Discoloration, Numbness/Tingling, Swelling Increased, Bleeding Excessive, Eyesight Changes, Pain Increased, Urine Color Change, Constipation(Persistent), Fever over 101 degree F, Pain/Pressure in chest, Urinating Difficulty, Cough Up/Vomit Blood, Heart Beat Irreg/Pounding, Pain/Pressure in jaw, Vaginal Bleeding Increase, Cramps in feet or legs, Lightheadedness, Pain/Pressure in shoulder, Diarrhea(Persistent), Memory Changes Suddenly, Questions/Concerns, Weight gain consecutive days, Dizziness/Fainting, Nausea/Vomiting, Shortness of Breath, Weight gain over 2 pounds If questions or concerns contact your physician Or seek help at emergency department. KRISTIN FINNEY DO November 21, 2018 11:39
--- NOTE | 2018-11-21 13:27 | Progress Note ---
Subjective Date Seen by a Provider: November 21, 2018 Time Seen by a Provider: 11:58 Subjective/Events-last exam feeling good. pain controlled with oral pain medication. tolerating diet. denies n/v fever sweats chills shortness of breath or chest pain. using incentive spirometer. Objective Exam Vital Signs Date Time Temp Pulse Resp B/P (MAP) Pulse Ox O2 Delivery O2 Flow Rate FiO2 11/21/18 11:34 98.7 98 20 161/72 (101) 93 Room Air 11/21/18 08:00 Room Air 11/21/18 07:44 98.7 82 20 145/63 (90) 93 Room Air 11/21/18 04:21 99.2 86 18 141/64 (89) 93 Room Air 11/20/18 23:51 99.2 92 18 130/60 (83) 92 Room Air 11/20/18 22:50 Nasal Cannula 4.00 11/20/18 20:20 99.4 99 20 129/58 (81) 92 Room Air 11/20/18 20:00 92 Room Air 11/20/18 16:55 99.6 104 18 140/66 (90) 94 Room Air 11/20/18 15:20 Room Air 11/20/18 15:18 Room Air I & O 11/21/18 07:00 Intake Total 5560 ml Output Total 2675 ml Balance 2885 ml Capillary Refill : Less Than 3 SecondsLess Than 3 Seconds General Appearance: No Apparent Distress, WD/WN, Obese HEENT: PERRL/EOMI, Normal ENT Inspection Neck: Non Tender, Supple Respiratory: Chest Non Tender, No Accessory Muscle Use, No Respiratory Distress Cardiovascular: Regular Rate, Rhythm Gastrointestinal: soft; No distended, No guarding, No rebound; tenderness (incisional) Extremity: Normal Capillary Refill, Normal Inspection Neurologic/Psychiatric: Alert, Oriented x3 Skin: Normal Color, Warm/Dry Lymphatic: No Adenopathy Assessment/Plan Assessment/Plan Assessment/Plan rlq abdominal pain appendicitis dm s/p lap appendectomy doing well pain control use IS follow up 2 weeks any issues be seen at that time dc home. Final Diagnosis rlq abdominal pain appendicitis dm s/p lap appendectomy Clinical Quality Measures DVT/VTE Risk/Contraindication: Risk Factor Score Per Nursin RFS Level Per Nursing on Admit: 4+=Very High KRISTIN OLIVER DO November 21, 2018 13:27
== END 2018-11-21 12:47 | disposition home or self-care (01) ==
LOC: EDUNIT# 05:08 → ER 05:11 → SDC 08:07 → 4TH 12:30 → SDC 11-21 12:47
PROVIDERS: ATTEND Surgery
DX: K37 Unspecified appendicitis (principal); E11.9 Type 2 diabetes mellitus without complications; E78.00 Pure hypercholesterolemia, unspecified; I10 Essential (primary) hypertension; K44.9 Diaphragmatic hernia without obstruction or gangrene; K46.9 Unspecified abdominal hernia without obstruction or gangrene; E66.9 Obesity, unspecified; Z68.38 Body mass index [BMI] 38.0-38.9, adult; Z87.442 Personal history of urinary calculi; Z79.4 Long term (current) use of insulin; Z79.899 Other long term (current) drug therapy
CPT/HCPCS: 36415; 74177; 80053; 81000; 82150; 82962; 83690; 85007; 85027; 93041; 94640